=== PATIENT | male | born 1945 | race Caucasian/White ===

== ENCOUNTER 2016-06-12 07:31 | Day surgery (SDC) | payer BC ==
[~2016-06-12 07:31] MED LIST: AMARYL2 PO; AMARYL4 PO; BEN25 PO; CASODEX 50 MG T50 MG OR; CASODEX 50 MG T50 MG PO; CLARIT10 PO; FORTAMET1000 MG PO; FORTAMET500 MG PO; GLUCPH PO; JANUVIA100 MG PO; LAM250 PO; LIPITOR20 PO; LOFIBRA200 MG PO; LUPRON; LUPRON DEPOT3.75 MG SC; LUPRON DEPOT30 MG IM; LUPRON2 WEEK IJ; NEXIUM40 PO; PEP20 PO; ZADITOR EYE DROPS OPH
[2016-08-07] MEDS ORDERED: LOFIBRA200 MG PO (08:48)
[2016-08-07] MEDS ORDERED: NIZORALCRM TOP (08:51)
[2016-08-07] MEDS ORDERED: TRIAMCINOLONE C80 GM TOP (08:51)
== END 2016-06-12 23:59 | disposition home health service (06) ==
LOC: DMU 07:31
PROVIDERS: Internal Medicine Gastroenterology
PROC: 4A1B88Z Monitoring of Gastrointestinal Motility, Via Natural or Artificial Opening Endoscopic (ICD-10-PCS; principal; 2016-06-12 07:30)
DX: K21.9 Gastro-esophageal reflux disease without esophagitis (principal); K22.70 Barrett's esophagus without dysplasia
CPT/HCPCS: A9270-GY; C1894

== ENCOUNTER 2016-08-22 07:52 | Day surgery (SDC) | payer BC ==
--- NOTE | ~2016-08-22 | EGD ---
EGD REPORT [facility] [address] [id number] NAME: KUMAR RO : 49 STATUS : REG [facility]#: [id number] AGE: 71 ADM/REG DATE : 08/22/16 MR#: [id number] REPORT SERV DATE: 08/22/16 DICTATED BY: DEWAYNE GAGNON DATE: 08/22/16 REPORT STATUS : Draft [facility]ANS[facility]: [facility] DATE: 08/22/16 Endoscopy Center Patient Name: Kumar Ro Date of : 1945 Attending MD: DEWAYNE GAGNON MD Procedure Date No Time: 08/22/2016 Procedure: Upper GI endoscopy Indications: Follow-up of Beth's esophagus Referring MD: DEWAYNE CASTILLO Medicines: Propofol per Anesthesia Complications: No immediate complications. Procedure: Pre-Anesthesia Assessment: - ASA Grade Assessment: III - A patient with severe systemic disease. After obtaining informed consent, the endoscope was passed under direct vision. Throughout the procedure, the patient's blood pressure, pulse, and oxygen saturations were monitored continuously. The GIF [id number] was introduced through the mouth, and advanced to the second part of duodenum. The upper GI endoscopy was accomplished without difficulty. The patient tolerated the procedure well. Findings: There were esophageal mucosal changes classified as Beth's stage C1-M8 per [place] criteria present in the lower third of the esophagus. The maximum longitudinal extent of these mucosal changes was 8 cm in length. The MCKEON capsule with delivery system was introduced through the mouth and advanced into the esophagus, such that the MCKEON pH capsule was positioned 34 cm from the incisors, which was 6 cm proximal to the EG junction. Suction was applied to the well of the MCKEON pH capsule to suck in the adjacent mucosa of the esophagus using the external vacuum pump for 30 seconds. The MCKEON pH capsule was then deployed by depressing the plunger on top of the handle to advance the locking pin into the mucosa, thereby attaching the capsule to the esophagus. The plunger was then rotated a quarter turn clockwise to release the capsule from the delivery system. The delivery system was then withdrawn. Endoscopy was utilized for probe placement and diagnostic evaluation. A small hiatus hernia was present. The examined duodenum was normal. see dictated note for further details Estimated blood loss: none. Impression: - Esophageal mucosal changes classified as Beth's stage C1-M8 per [place] criteria. EGD REPORT [address] [address] NAME: KUMAR RO : 49 STATUS : [place] [facility] [place]#: [id number] AGE: 71 ADM/REG DATE : 08/22/16 MR#: [id number] REPORT SERV DATE: 08/22/16 DICTATED BY: DEWAYNE GAGNON DATE: 08/22/16 REPORT STATUS : Draft [facility]ANS[facility]IBED BY: [facility] DATE: 08/22/16 - Hiatus hernia. - Normal examined duodenum. - The MCKEON pH capsule was positioned 34 cm from the incisors, which was 6 cm proximal to the EG junction. Procedure Code(s): --- Professional --- 53657, Esophagogastroduodenoscopy, flexible, transoral; diagnostic, including collection of specimen(s) by brushing or washing, when performed (separate procedure) Diagnosis Code(s): --- Professional --- K22.70, Beth's esophagus without dysplasia K44.9, Diaphragmatic hernia without obstruction or gangrene CPT copyright 2013 [employer]. All rights reserved. The codes documented in this report are preliminary and upon superintendent menagerie review may be revised to meet current compliance requirements. Dewayne Gagnon MD DEWAYNE GAGNON MD 08/22/2016 10:25 AM This report has been signed electronically. Number of Addenda: 0 Note Initiated On: 08/22/2016 9:20 AM Scope Withdrawal Time 0 hours 0 minutes 0 seconds [id number] [id number]
--- NOTE | ~2016-08-22 | OP ---
Record Of Operation [facility] [address] [address] NAME: STARR RO : 49 STATUS : REG [facility]#: [id number] AGE: 71 ADM/REG DATE : 08/22/16 MR#: [id number] REPORT SERV DATE: 08/22/16 DICTATED BY: DEWAYNE GAGNON DATE: 08/22/16 REPORT STATUS : Draft TRANSCRIBED BY: MOD[facility] DATE: 08/22/16 DATE OF PROCEDURE: 08/22/2016 PROCEDURE: Esophagogastroduodenoscopy and Reyna placement. 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 SEDATION: Diprivan. FINDING: The Olympus videoscope was passed in the esophagus. There was Beth's between 32 40 cm. The proximal 2 cm where the indefinite dysplasia was had only about 10-15% remaining of Beth's, and the rest of the esophagus, there was anywhere from 30-40% Beth's involving the wall. There was a small hiatal hernia. The site of Reyna placement was 34 cm, 6 cm above the gastroesophageal junction. The Reyna catheter was placed. Suction was applied. It was placed easily. The endoscope was readvanced to check the position and it was in excellent position. IMPRESSION: 1. Long segment Beth's with mild improvement from last exam in May. 2. Successful Reyna placement. MG/DELANEY Dewayne Gagnon M.D. / [id number] CC: Ibrahima Souza M.D.
[~2016-08-22 07:52] MED LIST changes: +NIZORALCRM TOP; +TRIAMCINOLONE C80 GM TOP
== END 2016-08-22 23:59 | disposition home or self-care (01) ==
LOC: DMU 07:52
PROVIDERS: Internal Medicine Gastroenterology
PROC: 0DJ08ZZ Inspection of Upper Intestinal Tract, Via Natural or Artificial Opening Endoscopic (ICD-10-PCS; principal; 2016-08-22 10:30)
DX: K44.9 Diaphragmatic hernia without obstruction or gangrene (principal); E11.9 Type 2 diabetes mellitus without complications; E66.9 Obesity, unspecified; G47.33 Obstructive sleep apnea (adult) (pediatric); Z85.46 Personal history of malignant neoplasm of prostate; Z99.81 Dependence on supplemental oxygen; Z88.8 Allergy status to other drugs, medicaments and biological substances; I10 Essential (primary) hypertension
CPT/HCPCS: 82962; 91035